=== PATIENT | male | born 1965 | race African-American/Black ===

== ENCOUNTER 2016-06-01 09:29 | Inpatient (IN) | payer SELFPAY ==
[~2016-06-01] VITALS: Ht 188 cm; Wt 90.8 kg
[~2016-06-01 09:29] MED LIST: CHLO.12%30 SSP; IBUP800T23 PO; PENVK500 PO
[2016-06-01 09:34] VITALS: BP 135/85; PULSE 86; RESP 14; TEMP 97.9; O2SAT 98
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
[2016-06-01] MEDS ORDERED: IBUPROFEN 800 MG TAB PO ONE (10:15)
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
[2016-06-01] MEDS ORDERED: SODIUM CHLORIDE 0.9% FLUSH 5 ML FLUSH IVF PRN (11:45)
[2016-06-01] MEDS ORDERED: ONDANSETRON HCL 4 MG/2 ML VIAL IVP PRN (12:00)
[2016-06-01] MEDS ORDERED: BISACODYL 10 MG SUPP PR PRN (12:00)
[2016-06-01] MEDS ORDERED: ACETAMINOPHEN/HYDROcodone 325 MG/5 MG TAB PO PRN (12:00)
[2016-06-01] MEDS ORDERED: SODIUM CHLORIDE 0.9% FLUSH 5 ML FLUSH FLUSH PRN (12:00)
[2016-06-01] MEDS ORDERED: ACETAMINOPHEN/HYDROcodone 325 MG/7.5 MG TAB PO PRN (12:00)
[2016-06-01] MEDS ORDERED: MORPHINE SULFATE 4 MG/ML INJ IV PRN (12:00)
[2016-06-01] MEDS ORDERED: NALOXONE HCL 0.4 MG/ML AMP IV PRN (12:00)
[2016-06-01] MEDS ORDERED: ACETAMINOPHEN 325 MG TAB PO PRN (12:00)
[2016-06-01] MEDS ORDERED: MAGNESIUM HYDROXIDE SUSP 30 ML CUP PO PRN (12:00)
[2016-06-01] MEDS: DOCUSATE SODIUM 100 MG CAP PO SCH ×3 (12:00→19:45)
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
[2016-06-01 12:20] VITALS: BP 138/82; PULSE 77; RESP 16; O2SAT 98
[2016-06-01 12:32] LABS: AUTOMATED NEUTROPHIL # 5.6 TH/MM3 (1.8-7.7); BASOPHIL # 0.1 TH/MM3 (0-0.2); BASOPHIL % 0.8 % (0.0-2.0); EOSINOPHIL # 0.1 TH/MM3 (0-0.4); EOSINOPHIL % 1.2 % (0.0-4.0); HEMATOCRIT 40.8 % (39.0-51.0); HEMO FLAGS DIFF FINAL; LYMPH % 20.9 % (9.0-44.0); LYMPHOCYTE # 1.7 TH/MM3 (1.0-4.8); MEAN CELL VOLUME 83.4 FL (80.0-100.0); MEAN CORPUSCULAR HEMOGLOBIN 27.5 PG (27.0-34.0); MONO % 8.2 % (0.0-8.0); NEUT % 68.9 % (16.0-70.0); PLATELET COUNT 312 TH/MM3 (150-450); RED BLOOD COUNT 4.89 MIL/MM3 (4.50-5.90); RED CELL DISTRIBUTION WIDTH 13.8 % (11.6-17.2); WHITE BLOOD COUNT 8.1 TH/MM3 (4.0-11.0)
--- NOTE | 2016-06-01 12:40 | RADRPT ---
EXAM DATE/TIME: 06/01/2016 11:43 [facility] COMPARISON: No previous studies available for comparison. INDICATIONS : Evaluate for pneumothorax, pneumothorax or cummuninable disease MEDICAL HISTORY : None. SURGICAL HISTORY : None. ENCOUNTER: Initial ACUITY: 1 day PAIN SCORE: 0/10 LOCATION: Bilateral chest FINDINGS: Single AP view of the chest. The lungs are clear. Cardiomediastinal silhouette within normal limits. No evidence of pleural effusion or pneumothorax. CONCLUSION: No acute cardiopulmonary disease identified. Aureliano Kim MD on June 01, 2016 at 12:38 Board Certified Radiologist. This report was verified electronically.
[2016-06-01 12:41] LABS: APTT (PATIENT) 28.2 SEC (24.3-30.1); PROTHROMBIN TIME - PATIENT 10.6 SEC (9.8-11.6)
[2016-06-01 12:46] LABS: BICARBONATE 28.7 MEQ/L (21.0-32.0); POTASSIUM 4.2 MEQ/L (3.5-5.1)
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
[2016-06-01] MEDS ORDERED: LORazepam 1 MG TAB PO PRN (14:00)
[2016-06-01] MEDS ORDERED: FLUMAZENIL 0.5 MG/5 ML VIAL IV PUSH PRN (14:00)
[2016-06-01] MEDS ORDERED: LORazepam 2 MG/ML VIAL IV PUSH PRN ×4 (14:00)
[2016-06-01] MEDS ORDERED: LORazepam 2 MG TAB PO PRN (14:00)
[2016-06-01] MEDS ORDERED: HALOPERIDOL LACTATE 5 MG/ML AMP IM PRN (14:00)
[2016-06-01 15:01] VITALS: BP 168/95; PULSE 83; RESP 17; TEMP 98.1; O2SAT 97
[2016-06-01] MEDS: SODIUM CHLORIDE 0.9% FLUSH 5 ML FLUSH FLUSH SCH (19:45)
[2016-06-01 20:21] VITALS: BP 163/92; PULSE 76; RESP 17; TEMP 97.6; O2SAT 99
[2016-06-02 00:44] VITALS: BP 163/92; PULSE 76; RESP 17; TEMP 97.6; O2SAT 99
[2016-06-02 00:47] VITALS: BP 156/86; PULSE 79; RESP 20; TEMP 97.2; O2SAT 100
[2016-06-02 04:28] VITALS: BP 149/91; PULSE 78; RESP 18; TEMP 97.6; O2SAT 100
[2016-06-02] MEDS ORDERED: METOPROLOL TARTRATE 25 MG TAB PO PRN (05:00)
[2016-06-02] MEDS ORDERED: INSULIN HUMAN REGULAR 1,000 UNITS/10 ML VIAL SQ PRN (05:00)
[2016-06-02] MEDS ORDERED: SODIUM CHLORID 0.9% 500 ML IV SCH (05:00)
[2016-06-02] MEDS ORDERED: LACTATED RINGER'S 1000 ML IV SCH (05:00)
[2016-06-02] MEDS ORDERED: HYDR-3288 PO (06:32)
[2016-06-02] MEDS ORDERED: WALKER/ADULT/FO1 MIS (06:34)
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
[2016-06-02] MEDS ORDERED: VANCOMYCIN HCL 1000 MG VIAL ONE (06:59)
[2016-06-02] MEDS ORDERED: SODIUM CHLOR 0.9% 250 ML INJ 250 ML ONE (07:00)
[2016-06-02] MEDS ORDERED: GENTAMICIN SULFATE 80 MG/2 ML VIAL ONE (07:00)
[2016-06-02] MEDS ORDERED: ceFAZolin 2 GM PREMIX 50 ML ONE (07:00)
[2016-06-02] MEDS ORDERED: FAMOTIDINE 20 MG/2 ML VIAL ONE (07:10)
[2016-06-02] MEDS ORDERED: ACETAMINOPHEN 1000 MG/100 ML VIAL IV ONE (07:10)
[2016-06-02] MEDS ORDERED: MIDAZOLAM HCL 2 MG/2 ML VIAL ONE (07:11)
--- NOTE | 2016-06-02 07:25 | PD.OP ---
cc: Tucker Duran MD Operative Report Date of Surgery: Jun 02, 2016 Preoperative Diagnosis: Displaced right ankle fracture Postoperative Diagnosis: Procedure: Open reduction internal fixation right ankle Anesthesia: Gen. Surgeon: Tucker Duran Performance Engineer(s): KYLEIGH Leach PA-C The surgical procedure was assisted by my physician news production assistant. My P.A. presence was necessary throughout this case for the manipulation and positioning of the surgical extremity. My P.A. was assisting me throughout the duration of this procedure. The skill set of a physician news production assistant was medically necessary to complete this procedure. During the surgical case the surgical supply assistant was working at the back table and the physician news production assistant was directly assisting me. Operation and Findings: This patient sustained an ankle injury with displaced right fibular fracture. Informed consent was obtained preoperatively after detailed discussion of risk and benefits of surgery. Operative site was marked. Patient was brought to operating room and placed on operating room table. IV sedation and GETA were administered by anesthesiologist. IV antibiotics were given prior to incision. Operative leg was prepped with alcohol followed by Hibiclens and draped in usual sterile fashion. Timeout procedure was performed. Procedure began with a 4 inch incision over the distal fibula. Subcutaneous tissues dissected with Bovie. Fracture site was visualized. Fracture was now carefully reduced. Fracture keyed into excellent alignment. Fracture tenaculums were used to hold reduction. Multiplanar fluoroscopy revealed excellent alignment of fracture. A Synthes plate was selected. Plate was provisionally held the bone with K wires. Fluoroscopy confirmed plate placement. 3.5 cortical screws were used to compress plate to bone. Multiple screws were placed on each side of the fracture. Fluoroscopy confirmed excellent of fracture with well-placed hardware. Next attention was turned towards the syndesmosis. The syndesmosis was gently stressed. The ankle was externally rotated. There was no widening of the medial clear space and syndesmosis. Next the wound was thoroughly irrigated with sterile saline. Subcutaneous tissues closed with 3-0 Vicryl. Skin was closed with 3-0 nylon. Sterile dressings were applied. Patient was placed into a well molded well-padded splint. Patient was awakened and transferred to recovery room in stable condition. Needle and sponge counts were correct. Tucker Duran MD Jun 02, 2016 07:25
[2016-06-02] MEDS ORDERED: ACETAMINOPHEN/HYDROcodone 325 MG/7.5 MG TAB PO PRN (07:30)
[2016-06-02] MEDS ORDERED: MORPHINE SULFATE 4 MG/ML INJ IV PUSH PRN (07:30)
[2016-06-02] MEDS ORDERED: Post-op Orders (for Pharmacy) MISC XX ONE (08:23)
[2016-06-02] MEDS ORDERED: DO NOT ADM ANY ANTICOAGULANT DRUGS XX PRN (08:25)
--- NOTE | 2016-06-02 08:30 | RADRPT ---
EXAM DATE/TIME: 06/02/2016 07:58 [facility] COMPARISON: No previous studies available for comparison. INDICATIONS : Post-op ORIF right distal fubula fracture. MEDICAL HISTORY : None. SURGICAL HISTORY : None. ENCOUNTER: Subsequent ACUITY: 2 days PAIN SCORE: Non-responsive. LOCATION: Right ankle. FINDINGS: There is been plate and screw fixation of the distal fibula. Hardware is intact. Alignment is anatomi c. Mortise is congruent. Visualized portions of the hindfoot are grossly intact CONCLUSION: Satisfactory operative appearance Everardo Mcallister MD on June 02, 2016 at 8:28 Board Certified Radiologist. This report was verified electronically.
[2016-06-02] MEDS ORDERED: *RESP: ALBUTEROL 2.5 MG/3 ML NEB (PRN) PERIprocedural Use ONLY NEB ONE (08:34)
[2016-06-02] MEDS ORDERED: fentaNYL CITRATE 250 MCG/5 ML AMP ONE (08:34)
[2016-06-02] MEDS ORDERED: MULTIVITAMINS/MINERALS THERAPEUTIC TAB PO SCH (09:00)
[2016-06-02] MEDS: DOCUSATE SODIUM 100 MG CAP PO SCH (09:00)
[2016-06-02] MEDS: CALCIUM/VITAMIN D 250 MG/125 U TAB PO SCH ×2 (09:00→15:13)
[2016-06-02] MEDS ORDERED: THIAMINE HCL 100 MG TAB PO SCH (09:00)
[2016-06-02] MEDS ORDERED: FOLIC ACID 1 MG TAB PO SCH (09:00)
[2016-06-02] MEDS: SODIUM CHLORIDE 0.9% FLUSH 5 ML FLUSH FLUSH SCH (09:00)
[2016-06-02] MEDS ORDERED: *LABETALOL HCL 100 MG/20 ML VIAL PERIprocedural Use ONLY ONE (09:51)
[2016-06-02] MEDS: ACETAMINOPHEN/HYDROcodone 325 MG/7.5 MG TAB PO PRN ×2 (10:47→16:51)
[2016-06-02 10:55] VITALS: BP 138/93; PULSE 73; RESP 16; TEMP 97.4; O2SAT 99
[2016-06-02] MEDS ORDERED: PROPOFOL 200 MG/20 ML AMP IV ONE (12:00)
[2016-06-02] MEDS ORDERED: NEOSTIGMINE 3 MG/3 ML SYR IV ONE (12:00)
[2016-06-02] MEDS ORDERED: ONDANSETRON HCL 4 MG/2 ML VIAL IV PUSH ONE (12:00)
[2016-06-02] MEDS ORDERED: PHENYLEPH/NS 1000 MCG/10 ML SYR IV ONE (12:00)
[2016-06-02] MEDS ORDERED: FOLI1TAB4 PO (13:19)
[2016-06-02] MEDS ORDERED: VITA100T2 PO (13:19)
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
[2016-06-02] MEDS ORDERED: ceFAZolin 2 GM PREMIX 50 ML IV SCH (15:00)
[2016-06-02 16:00] VITALS: BP 142/87; PULSE 79; RESP 18; TEMP 96.9; O2SAT 99
== END 2016-06-02 17:27 | disposition home or self-care (01) | DRG 494 ==
LOC: NEPB 09:29 → NEDA 12:00 → N06B 14:36
PROVIDERS: ADMIT Hospitalist; ATTEND Hospitalist
PROC: 0QSJ04Z Reposition Right Fibula with Internal Fixation Device, Open Approach (ICD-10-PCS; principal; 2016-06-02 07:16)
DX: S82.831A Other fracture of upper and lower end of right fibula, initial encounter for closed fracture (principal); F17.210 Nicotine dependence, cigarettes, uncomplicated; F14.90 Cocaine use, unspecified, uncomplicated; Z72.89 Other problems related to lifestyle; W03.XXXA Other fall on same level due to collision with another person, initial encounter; Y93.89 Activity, other specified
CPT/HCPCS: 71010; 73600; 73610; 73630; 76000; 80048; 85025; 85610; 85730; 94150; 94664; 99284; C1713; E0113; J0131; J0690; J1580; J2250; J2370; J2405; J2710; J3010; J3370; J7050; J7120; J7613

== ENCOUNTER 2017-02-01 21:17 | Inpatient (IN) | payer SELFPAY ==
[~2017-02-01] VITALS: Ht 188 cm; Wt 89.2 kg
[~2017-02-01 21:17] MED LIST changes: -CHLO.12%30 SSP; +FOLI1TAB4 PO; +HYDR-3288 PO; -IBUP800T23 PO; -PENVK500 PO; +VITA100T2 PO; +WALKER/ADULT/FO1 MIS
[2017-02-01 21:26] VITALS: BP 169/98; PULSE 80; RESP 17; TEMP 97.2; O2SAT 98
[2017-02-01] MEDS ORDERED: oxyCODONE/ACETAMINOPHEN 5 MG/325 MG TAB PO ONE (21:30)
--- NOTE | 2017-02-01 21:58 | RADRPT ---
EXAM DATE/TIME: 02/01/2017 21:39 [facility] COMPARISON: No previous studies available for comparison. INDICATIONS : Knee pain after falling on knee on 01/31, swelling to anterior knee. MEDICAL HISTORY : None. SURGICAL HISTORY : None. ENCOUNTER: Initial ACUITY: 1 day PAIN SCORE: 0/10 LOCATION: Right knee FINDINGS: There is an avulsion fracture of the inferior pole of the patella with superior migration of the peterson lla. There is prepatellar soft tissue swelling. Minimal medial subluxation of the distal femur. Hyper trophic bony changes noted at the medial collateral ligament insertion superiorly. CONCLUSION: 1. Avulsion fracture inferior patella with superior migration of the patella and extensive prepatella r soft tissue swelling. Rudy Lewis MD on February 01, 2017 at 21:54 Board Certified Radiologist. This report was verified electronically.
--- NOTE | 2017-02-01 22:14 | PD ---
HPI Chief Complaint: Fall Time Seen by Provider: 21:26 Travel History International Travel<30 days: No Contact w/Intl Traveler<30days: No Traveled to known affect area: No History of Present Illness HPI Patient is a 52-year-old male presenting to emergency evaluation of right knee pain. Patient states he tripped and fell onto his right knee Yesterday while leaving the liquor store. Patient states that he has been unable to ambulate on it, he's been using a walker that he had a his house. He reports his pain as a 9 out of 10, he reports decreased range of motion. He states when he fell his kneecap was out of place. Patient states it is aching and throbbing. Pain is alleviated somewhat with rest, worsened with activity. He denies any numbness or weakness in his extremity. [facility] Past Medical History Medical History: Denies Significant Hx Arthritis: No Asthma: No Autoimmune Disease: No Blood Disorders: No Heart Rhythm Problems: No Cardiovascular Problems: No High Cholesterol: No Chest Pain: No Congestive Heart Failure: No COPD: No Cerebrovascular Accident: No Diabetes: No Diminished Hearing: No GERD: No Glaucoma: No Headaches: No Hepatitis: No Hiatal Hernia: No Immune Disorder: No Kidney Stones: No Musculoskeletal: No Neurologic: No Myocardial Infarction: No Renal Failure: No Seizures: No Sickle Cell Disease: No Sleep Apnea: No Thyroid Disease: No Ulcer: No Tetanus Vaccination: Unknown Influenza Vaccination: No Past Surgical History Abdominal Surgery: No Cardiac Surgery: No Ear Surgery: No Endocrine Surgery: No Eye Surgery: Yes (LEFT EYE X 3 YRS AGO) Genitourinary Surgery: No Gynecologic Surgery: No Oral Surgery: No Thoracic Surgery: No Other Surgery: Yes (wrist.surgury) Social History Alcohol Use: Yes (4 PPD) Tobacco Use: Yes (1/4 PPD) Substance Use: No (PT DENIES) Allergies-Medications (Allergen,Severity, Reaction): Coded Allergies: No Known Allergies (Verified , 02/01/17) Reported Meds & Prescriptions Reported Meds & Active Scripts Active Walker/Adult/Folding (Device) 1 Mis Mis 1 Ea .ROUTE DIRECTED Review of Systems Except as stated in HPI: all other systems reviewed are Neg Musculoskeletal: Positive: Myalgias, Arthralgias, Limited ROM, Edema, Pain Physical Exam Narrative GENERAL: Well-developed, well-nourished, alert male. Resting comfortably in no acute distress. SKIN: Warm and dry. HEAD: Atraumatic. Normocephalic. EYES: Pupils equal and round. No scleral icterus. No injection or drainage. ENT: No nasal bleeding or discharge. Mucous membranes pink and moist. NECK: Trachea midline. No JVD. CARDIOVASCULAR: Regular rate and rhythm. RESPIRATORY: No accessory muscle use. Clear to auscultation. Breath sounds equal bilaterally. GASTROINTESTINAL: Abdomen soft, non-tender, nondistended. Hepatic and splenic margins not palpable. MUSCULOSKELETAL: Extremities without clubbing, cyanosis. Moderate to the right anterior knee, decreased range of motion with flexion, patient can only flex to about 30, extension is painful. 2+ dorsalis pedal pulses, brisk less than 3 second capillary refill. NEUROLOGICAL: Awake and alert. No obvious cranial nerve deficits. Motor grossly within normal limits. Five out of 5 muscle strength in the arms and legs. Normal speech. PSYCHIATRIC: Appropriate mood and affect; insight and judgment normal. Data Data Last Documented VS Vital Signs Date Time Temp Pulse Resp B/P (MAP) Pulse Ox O2 Delivery O2 Flow Rate FiO2 02/01/17 22:46 74 20 156/93 (114) 99 Room Air 02/01/17 21:26 97.2 Orders Orders Knee, Complete (4vws) (02/01/17 ) Oxycodone-Acetamin 5-325 Mg (Percocet (02/01/17 21:30) Ice/Cold Pack (02/01/17 21:26) Complete Blood Count With Diff (02/01/17 22:09) Basic Metabolic Panel (Bmp) (02/01/17 22:09) Act Partial Throm Time (Ptt) (02/01/17 22:09) Prothrombin Time / Inr (Pt) (02/01/17 22:09) Iv Access Insert/Monitor (02/01/17 22:09) Consult Orthopedic (02/01/17 ) ^ Knee Immobilizer (02/01/17 23:02) Admit Order (Ed Use Only) (02/01/17 23:02) Labs Laboratory Tests Test 02/01/17 22:20 White Blood Count 7.1 TH/MM3 Red Blood Count 5.00 MIL/MM3 Hemoglobin 14.1 GM/DL Hematocrit 42.2 % Mean Corpuscular Volume 84.3 FL Mean Corpuscular Hemoglobin 28.3 PG Mean Corpuscular Hemoglobin Concent 33.5 % Red Cell Distribution Width 14.4 % Platelet Count 338 TH/MM3 Mean Platelet Volume 7.0 FL Neutrophils (%) (Auto) 71.6 % Lymphocytes (%) (Auto) 14.2 % Monocytes (%) (Auto) 8.7 % Eosinophils (%) (Auto) 4.3 % Basophils (%) (Auto) 1.2 % Neutrophils # (Auto) 5.1 TH/MM3 Lymphocytes # (Auto) 1.0 TH/MM3 Monocytes # (Auto) 0.6 TH/MM3 Eosinophils # (Auto) 0.3 TH/MM3 Basophils # (Auto) 0.1 TH/MM3 CBC Comment AUTO DIFF Prothrombin Time 10.4 SEC Prothromb Time International Ratio 0.9 RATIO Activated Partial Thromboplast Time 28.1 SEC Blood Urea Nitrogen 23 MG/DL Creatinine 1.31 MG/DL Random Glucose 151 MG/DL Calcium Level 8.8 MG/DL Sodium Level 140 MEQ/L Potassium Level 3.9 MEQ/L Chloride Level 102 MEQ/L Carbon Dioxide Level 25.7 MEQ/L Anion Gap 12 MEQ/L Estimat Glomerular Filtration Rate 70 ML/MIN MDM Medical Decision Making Medical Screen Exam Complete: Yes Emergency Medical Condition: Yes Interpretation(s) Laboratory Tests Test 02/01/17 22:20 White Blood Count 7.1 TH/MM3 Red Blood Count 5.00 MIL/MM3 Hemoglobin 14.1 GM/DL Hematocrit 42.2 % Mean Corpuscular Volume 84.3 FL Mean Corpuscular Hemoglobin 28.3 PG Mean Corpuscular Hemoglobin Concent 33.5 % Red Cell Distribution Width 14.4 % Platelet Count 338 TH/MM3 Mean Platelet Volume 7.0 FL Neutrophils (%) (Auto) 71.6 % Lymphocytes (%) (Auto) 14.2 % Monocytes (%) (Auto) 8.7 % Eosinophils (%) (Auto) 4.3 % Basophils (%) (Auto) 1.2 % Neutrophils # (Auto) 5.1 TH/MM3 Lymphocytes # (Auto) 1.0 TH/MM3 Monocytes # (Auto) 0.6 TH/MM3 Eosinophils # (Auto) 0.3 TH/MM3 Basophils # (Auto) 0.1 TH/MM3 CBC Comment AUTO DIFF Prothrombin Time 10.4 SEC Prothromb Time International Ratio 0.9 RATIO Activated Partial Thromboplast Time 28.1 SEC Blood Urea Nitrogen 23 MG/DL Creatinine 1.31 MG/DL Random Glucose 151 MG/DL Calcium Level 8.8 MG/DL Sodium Level 140 MEQ/L Potassium Level 3.9 MEQ/L Chloride Level 102 MEQ/L Carbon Dioxide Level 25.7 MEQ/L Anion Gap 12 MEQ/L Estimat Glomerular Filtration Rate 70 ML/MIN Last Impressions Knee X-Ray 02/01/17 0000 Signed Impressions: Service Date/Time: Wednesday, February 01, 2017 21:39 - CONCLUSION: 1. Avulsion fracture inferior patella with superior migration of the patella and extensive prepatellar soft tissue swelling. Rudy Lewis MD Vital Signs Date Time Temp Pulse Resp B/P (MAP) Pulse Ox O2 Delivery O2 Flow Rate FiO2 02/01/17 21:26 97.2 80 17 169/98 (121) 98 Differential Diagnosis Sprain versus strain versus effusion versus fracture versus dislocation versus other Narrative Course Patient presented with 1 day of right knee pain after trip and fall. He is neurovascularly intact, imaging and medications ordered. Right knee x-ray which is read by the radiologist shows an Avulsion fracture inferior patella with superior migration of the patella and extensive prepatellar soft tissue swelling. On-call orthopedic surgeon paged. Basic labs, IV antibiotics ordered. Patient was reassessed, he reports improvement in his pain after demonstration of Percocet, he last ate approximately 1 hour prior to arrival. Discussed with Dr. Sargent Orthopedic surgeon. She will see patient in the morning. Patient will be admitted to medicine. Labs reviewed, no acute abnormalities identified. Discussed with Dr. Lu, who accepted admitted. Admit orders place. Patient aware and agreeable to plan. Knee immobilizer ordered. Diagnosis Primary Impression: Patella fracture Qualified Codes: S82.091A - Other fracture of right patella, initial encounter for closed fracture Admitting Information Admitting Physician Requests: Admit Condition: Stable Randi Peña Feb 01, 2017 22:14
[2017-02-01 22:38] LABS: AUTOMATED NEUTROPHIL # 5.1 TH/MM3 (1.8-7.7); BASOPHIL # 0.1 TH/MM3 (0-0.2); BASOPHIL % 1.2 % (0.0-2.0); EOSINOPHIL # 0.3 TH/MM3 (0-0.4); EOSINOPHIL % 4.3 % (0.0-4.0); HEMATOCRIT 42.2 % (39.0-51.0); LYMPH % 14.2 % (9.0-44.0); MEAN CELL VOLUME 84.3 FL (80.0-100.0); MEAN CORPUSCULAR HEMOGLOBIN 28.3 PG (27.0-34.0); MEAN CORPUSCULAR HGB CONC 33.5 % (32.0-36.0); MONO % 8.7 % (0.0-8.0); NEUT % 71.6 % (16.0-70.0); PLATELET COUNT 338 TH/MM3 (150-450); RED CELL DISTRIBUTION WIDTH 14.4 % (11.6-17.2); WHITE BLOOD COUNT 7.1 TH/MM3 (4.0-11.0)
[2017-02-01 22:43] LABS: HEMO FLAGS AUTO DIFF
[2017-02-01 22:46] VITALS: BP 156/93; PULSE 74; RESP 20; O2SAT 99
[2017-02-01 22:48] LABS: APTT (PATIENT) 28.1 SEC (24.3-30.1); INTERNATIONAL NORMALIZED RATIO 0.9 RATIO; PROTHROMBIN TIME - PATIENT 10.4 SEC (9.8-11.6)
[2017-02-01 22:58] LABS: BICARBONATE 25.7 MEQ/L (21.0-32.0); POTASSIUM 3.9 MEQ/L (3.5-5.1)
[2017-02-01 23:07] LABS: BANDS 7 % (0-6); BASOPHILS 2 % (0-2); EOSINOPHILS 4 % (0-4); NEUTROPHIL # MANUAL DIFF 5.1 TH/MM3 (1.8-7.7); POLYS (SEG NEUTROPHILS) 65 % (16-70); SCAN/DIFF FINAL DIFF MANUAL; WBC DIFF SAMPLE 100
[2017-02-01 23:08] LABS: PLATELET ESTIMATE SMEAR NORMAL (NORMAL); PLATELET MORPHOLOGY NORMAL (NORMAL)
[2017-02-01] MEDS: SODIUM CHLOR 0.9% 1000 ML INJ 1,000 ML IV SCH (23:10)
--- NOTE | 2017-02-01 23:12 | HHI.HP ---
[facility] No Primary Care Physician Admission Diagnosis patella fracture Diagnoses: (1) Fall Diagnosis: Principal (2) Patella fracture Diagnosis: Principal (3) Renal insufficiency Diagnosis: Principal (4) HTN (hypertension) Diagnosis: Principal Travel History International Travel<30 Days: No Contact w/Intl Traveler <30 Da: No Traveled to Known Affected Are: No History of Present Illness This is a 52-year-old male with PMH of Alcohol Abuse and Tobacco Abuse who presented to the ER with complaints of right knee pain after mechanical trip and fall. States tripped and fell yesterday while leaving liquor store, unable to ambulate since then secondary to pain. No LOC or head trauma w/ fall. On arrival, BP 169/98, HR 80, O2 sat 98% on RA, Afebrile. CBC essentially unremarkable. Chemistry unremarkable except for creatinine 1.31, previously 1.09 on 06/01/16. INR 0.9. Knee X-ray with avulsion fracture inferior patella. Dr. Sargent consulted by ER physician, plan is for surgical intervention in am. Review of Systems Except as stated in HPI: all other systems reviewed are Neg ROS: 14 point review of systems otherwise negative. Past Family Social History Past Medical History PMH: Alcohol Abuse, Tobacco Abuse Past Surgical History PAST SURGICAL HISTORY: Wrist Surgery, Eye Surgery Allergies: Coded Allergies: No Known Allergies (Verified , 02/01/17) Family History PAST FAMILY HISTORY: Reviewed. No h/o DM or CAD Social History PAST SOCIAL HISTORY: Drinks daily. Smokes 1/4ppd. H/o Cocaine abuse, denies recent ingestion. Physical Exam Vital Signs Vital Signs Date Time Temp Pulse Resp B/P (MAP) Pulse Ox O2 Delivery O2 Flow Rate FiO2 02/01/17 22:46 74 20 156/93 (114) 99 Room Air 02/01/17 21:26 97.2 80 17 169/98 (121) 98 Physical Exam PE: GENERAL: Middle-aged male in no acute distress. HEENT: PERRLA, EOMI. No scleral icterus or conjunctival pallor. No lid lag or facial droop. CARDIOVASCULAR: Regular rate and rhythm. No obvious murmurs to auscultation. No chest tenderness to palpation. RESPIRATORY: No obvious rhonchi or wheezing. Clear to auscultation. Breath sounds equal bilaterally. GASTROINTESTINAL: Abdomen soft, non-tender, nondistended. BS normal. MUSCULOSKELETAL: Extremities without clubbing, cyanosis, or edema. No obvious deformities. Decreased ROM of RLE due to injury. NEUROLOGICAL: Awake, alert and oriented x4. No focal neurologic deficits. Moving both upper and lower extremities spontaneously. Laboratory Laboratory Tests Test 02/01/17 22:20 White Blood Count 7.1 Red Blood Count 5.00 Hemoglobin 14.1 Hematocrit 42.2 Mean Corpuscular Volume 84.3 Mean Corpuscular Hemoglobin 28.3 Mean Corpuscular Hemoglobin Concent 33.5 Red Cell Distribution Width 14.4 Platelet Count 338 Mean Platelet Volume 7.0 Neutrophils (%) (Auto) 71.6 Lymphocytes (%) (Auto) 14.2 Monocytes (%) (Auto) 8.7 Eosinophils (%) (Auto) 4.3 Basophils (%) (Auto) 1.2 Neutrophils # (Auto) 5.1 Lymphocytes # (Auto) 1.0 Monocytes # (Auto) 0.6 Eosinophils # (Auto) 0.3 Basophils # (Auto) 0.1 CBC Comment AUTO DIFF Differential Total Cells Counted 100 Neutrophils % (Manual) 65 Band Neutrophils % 7 Lymphocytes % 19 Monocytes % 3 Eosinophils % 4 Basophils % 2 Neutrophils # (Manual) 5.1 Differential Comment FINAL DIFF MANUAL Atypical Lymphocytes Platelet Estimate NORMAL Platelet Morphology Comment NORMAL Red Cell Morphology Comment NORMAL Prothrombin Time 10.4 Prothromb Time International Ratio 0.9 Activated Partial Thromboplast Time 28.1 Blood Urea Nitrogen 23 Creatinine 1.31 Random Glucose 151 Calcium Level 8.8 Sodium Level 140 Potassium Level 3.9 Chloride Level 102 Carbon Dioxide Level 25.7 Anion Gap 12 Estimat Glomerular Filtration Rate 70 Result Diagram: 02/01/17221902/01/172219 Caprini VTE Risk Assessment Caprini VTE Risk Assessment: Mod/High Risk (score >= 2) Caprini Risk Assessment Model Point Value = 1 Point Value = 2 Point Value = 3 Point Value = 5 Age 41-60 Minor surgery BMI > 25 kg/m2 Swollen legs Varicose veins or History of unexplained or recurrent spontaneous Oral contraceptives or hormone replacement Sepsis (< 1 month) Serious lung disease, including pneumonia (< 1 month) Abnormal pulmonary function Acute myocardial infarction Congestive heart failure (< 1 month) History of inflammatory bowel disease Medical patient at bed rest Age 61-74 Arthroscopic surgery Major open surgery (> 45 min) Laparoscopic surgery (> 45 min) Malignancy Confined to bed (> 72 hours) Immobilizing plaster cast Central venous access Age >= 75 History of VTE Family history of VTE Factor V Leiden Prothrombin 18284H Lupus anticoagulant Anticardiolipin antibodies Elevated serum homocysteine Heparin-induced thrombocytopenia Other congenital or acquired thrombophilia Stroke (< 1 month) Elective arthroplasty Hip, pelvis, or leg fracture Acute spinal cord injury (< 1 month) Prophylaxis Regimen Total Risk Factor Score Risk Level Prophylaxis Regimen 0-1 Low Early ambulation 2 Moderate Order ONE of the following: *Sequential Compression Device (SCD) *Heparin 5000 units SQ BID 3-4 Higher Order ONE of the following medications: *Heparin 5000 units SQ TID *Enoxaparin/Lovenox 40 mg SQ daily (WT < 150 kg, CrCl > 30 mL/min) *Enoxaparin/Lovenox 30 mg SQ daily (WT < 150 kg, CrCl > 10-29 mL/min) *Enoxaparin/Lovenox 30 mg SQ BID (WT < 150 kg, CrCl > 30 mL/min) AND/OR *Sequential Compression Device (SCD) 5 or more Highest Order ONE of the following medications: *Heparin 5000 units SQ TID (Preferred with Epidurals) *Enoxaparin/Lovenox 40 mg SQ daily (WT < 150 kg, CrCl > 30 mL/min) *Enoxaparin/Lovenox 30 mg SQ daily (WT < 150 kg, CrCl > 10-29 mL/min) *Enoxaparin/Lovenox 30 mg SQ BID (WT < 150 kg, CrCl > 30 mL/min) AND *Sequential Compression Device (SCD) Assessment and Plan Problem List: (1) Fall ICD Code: W19.XXXA - Unspecified fall, initial encounter (2) Patella fracture ICD Code: S82.009A - Unspecified fracture of unspecified patella, initial encounter for closed fracture Status: Acute (3) Renal insufficiency ICD Code: N28.9 - Disorder of kidney and ureter, unspecified (4) HTN (hypertension) ICD Code: I10 - Essential (primary) hypertension Assessment and Plan A/P: 1. Fall: S/p mechanical trip and fall while walking out of liquor store, no LOC or head trauma, no other injuries reported. 2. Right Patellar Fx: secondary to above, Knee X-ray w/ avulsion fracture inferior patella with superior migration of patella and extensive prepatellar soft tissue swelling, images reviewed by me. Dr. Sargent consulted by ER physician, plan is for surgical intervention in am. NPO, IVF, analgesics/ antiemetics as needed. 3. DANIELA: Creatinine 1.31, previously 1.09 on 06/01/16. IVF for hydration, repeat labs in a.m. 4. HTN: BP 160s on arrival, likely compounded by pain complaints. Monitor BP. 5. Alcohol Abuse: Drinks daily. CIWA, Seizure Precautions, MVT/Thiamine/ Folate replacement. 6. Tobacco Abuse: NicoDerm prn if needed. 7. DVT Prophylaxis: Anticoagulation post op 8. Social work for d/c planning as needed. 9. Case discussed w/ ER physician at length. Physician Certification 2 Midnight Certification Type: Admission for Inpatient Services Order for Inpatient Services The services are ordered in accordance with Medicare regulations or non- Medicare payer requirements, as applicable. In the case of services not specified as inpatient-only, they are appropriately provided as inpatient services in accordance with the 2-midnight benchmark. Estimated LOS (days): 2 days is the estimated time the patient will need to remain in the hospital, assuming treatment plan goals are met and no additional complications. Post-Hospital Plan: Not yet determined Problem Qualifiers (1) Patella fracture: Qualified Codes: S82.091A - Other fracture of right patella, initial encounter for closed fracture Lexii Lu MD Feb 01, 2017 23:12
[2017-02-01] MEDS ORDERED: SODIUM CHLORIDE 0.9% FLUSH 10 ML FLUSH IV FLUSH PRN (23:15)
[2017-02-01] MEDS ORDERED: MAGNESIUM HYDROXIDE SUSP 30 ML CUP PO PRN (23:15)
[2017-02-01] MEDS ORDERED: BISACODYL 10 MG SUPP RECTAL PRN (23:15)
[2017-02-01] MEDS ORDERED: SENNOSIDES 8.6 MG TAB PO PRN (23:15)
[2017-02-01] MEDS ORDERED: ONDANSETRON HCL 4 MG/2 ML VIAL IVP PRN (23:15)
[2017-02-01] MEDS ORDERED: MORPHINE SULFATE 4 MG/ML INJ IV PUSH PRN (23:15)
[2017-02-01] MEDS ORDERED: ACETAMINOPHEN 325 MG TAB PO PRN (23:15)
[2017-02-01] MEDS ORDERED: LACTULOSE SYRUP 20 GM/30 ML CUP PO PRN (23:15)
[2017-02-01] MEDS ORDERED: MORPHINE SULFATE 2 MG/ML INJ IV PRN (23:30)
[2017-02-01 23:45] VITALS: BP 152/88; PULSE 76; RESP 17; TEMP 97.5; O2SAT 98
[2017-02-02] MEDS ORDERED: LACTATED RINGER'S 1000 ML IV PRN (00:15)
[2017-02-02] MEDS ORDERED: POVIDONE IODINE 5% (ANTISEPSIS KIT) 4 APPLICATIONS EACH NARE PRN (00:15)
[2017-02-02] MEDS ORDERED: INSULIN HUMAN REGULAR 1,000 UNITS/10 ML VIAL SQ PRN (00:15)
[2017-02-02] MEDS ORDERED: CHLORHEXIDINE GLUCONATE 2 % 1 PACK (2 CLOTHS) TOPICAL PRN (00:15)
[2017-02-02] MEDS ORDERED: SODIUM CHLORID 0.9% 500 ML IV PRN (00:15)
[2017-02-02] MEDS ORDERED: LORazepam 2 MG/ML VIAL IV PUSH PRN ×4 (01:15)
[2017-02-02] MEDS ORDERED: HALOPERIDOL LACTATE 5 MG/ML AMP IM PRN (01:15)
[2017-02-02] MEDS ORDERED: LORazepam 2 MG TAB PO PRN (01:15)
[2017-02-02] MEDS ORDERED: LORazepam 1 MG TAB PO PRN (01:15)
[2017-02-02] MEDS ORDERED: FLUMAZENIL 0.5 MG/5 ML VIAL IV PUSH PRN (01:15)
[2017-02-02 03:50] VITALS: BP 133/86; PULSE 76; RESP 18; TEMP 96.1; O2SAT 99
--- NOTE | 2017-02-02 07:01 | PD.ORT.PN ---
Subjective Subjective Remarks s/p fall while leaving liquor store right knee pain Objective Vitals Vital Signs Date Time Temp Pulse Resp B/P (MAP) Pulse Ox O2 Delivery O2 Flow Rate FiO2 02/02/17 03:50 96.1 76 18 133/86 (102) 99 02/02/17 03:05 Room Air 02/01/17 23:45 97.5 76 17 152/88 (109) 98 02/01/17 23:29 20 02/01/17 22:46 74 20 156/93 (114) 99 Room Air 02/01/17 21:26 97.2 80 17 169/98 (121) 98 I/O 02/01/17 02/01/17 02/01/17 02/02/17 02/02/17 02/02/17 07:00 15:00 23:00 07:00 15:00 23:00 Intake Total 120 ml Output Total 450 ml Balance -330 ml Intake Oral 120 ml Output Urine Total 450 ml # Voids 0 # Bowel Movements 1 Result Diagram: 02/01/17221902/01/172219 Other Results Laboratory Tests Test 02/01/17 22:20 Prothromb Time International Ratio 0.9 RATIO Prothrombin Time 10.4 SEC (9.8-11.6) Objective Remarks RLE: Pain with motion. +CKS/ pain with palpation. noted swelling. pain with activation of quad muscles Assessment & Plan Assessment and Plan 1) Right Patellar Tendon Avulsion -npo -consents -surgery today Julian Park Feb 02, 2017 07:01
[2017-02-02 07:07] LABS: AUTOMATED NEUTROPHIL # 3.5 TH/MM3 (1.8-7.7); BASOPHIL # 0.1 TH/MM3 (0-0.2); BASOPHIL % 1.1 % (0.0-2.0); EOSINOPHIL # 0.2 TH/MM3 (0-0.4); EOSINOPHIL % 3.7 % (0.0-4.0); HEMATOCRIT 41.5 % (39.0-51.0); HEMO FLAGS DIFF FINAL; LYMPH % 29.1 % (9.0-44.0); LYMPHOCYTE # 1.8 TH/MM3 (1.0-4.8); MEAN CELL VOLUME 85.2 FL (80.0-100.0); MEAN CORPUSCULAR HEMOGLOBIN 28.1 PG (27.0-34.0); MONO % 9.3 % (0.0-8.0); NEUT % 56.8 % (16.0-70.0); PLATELET COUNT 308 TH/MM3 (150-450); RED BLOOD COUNT 4.87 MIL/MM3 (4.50-5.90); RED CELL DISTRIBUTION WIDTH 14.1 % (11.6-17.2); WHITE BLOOD COUNT 6.2 TH/MM3 (4.0-11.0)
[2017-02-02 07:27] LABS: ALT (GPT) 19 U/L (12-78); ANION GAP 8 MEQ/L (5-15); AST (GOT) 15 U/L (15-37); BICARBONATE 24.3 MEQ/L (21.0-32.0); BLOOD UREA NITROGEN 15 MG/DL (7-18); CHLORIDE 106 MEQ/L (98-107); GLOMERULAR FILTRATION RATE 117 ML/MIN (>89); POTASSIUM 4.1 MEQ/L (3.5-5.1); SODIUM (NA) 138 MEQ/L (136-145)
[2017-02-02 07:30] LABS: ALKALINE PHOSPHATASE 64 U/L (45-117); TOTAL BILIRUBIN ADULT 0.2 MG/DL (0.2-1.0)
[2017-02-02 08:03] VITALS: BP 141/94; PULSE 65; RESP 18; TEMP 97.2; O2SAT 98
[2017-02-02] MEDS: MULTIVITAMINS/MINERALS THERAPEUTIC TAB PO SCH (09:00)
[2017-02-02] MEDS: THIAMINE HCL 100 MG TAB PO SCH (09:00)
[2017-02-02] MEDS: FOLIC ACID 1 MG TAB PO SCH (09:00)
[2017-02-02] MEDS ORDERED: SODIUM CHLORIDE 0.9% FLUSH 10 ML FLUSH IV FLUSH SCH (09:00)
[2017-02-02] MEDS: DOCUSATE SODIUM 50 MG/SENNA 8.6 MG TAB PO SCH ×2 (09:00→21:00)
[2017-02-02] MEDS: SODIUM CHLOR 0.9% 1000 ML INJ 1,000 ML IV SCH ×2 (09:10→19:10)
--- NOTE | 2017-02-02 09:18 | MB ---
cc: HANNAH PRADO CAMILLE MD DATE OF CONSULTATION: 02/02/2017 REASON FOR CONSULTATION Right patellar tendon avulsion. CONSULTING PHYSICIAN Dr. Lu. HISTORY OF PRESENT ILLNESS Tommie is a 52-year-old male who presented to the emergency room after having a fall. He states that he tripped and fell while leaving a liquor store. He has been unable to ambulate since his fall. He presented to the emergency room where he was found to have an avulsion of the patellar tendon from the inferior patella. He is currently awake and alert. His only complaint is his right knee. The pain is worse with movement. He denies any dizziness, syncope or loss of consciousness. PAST MEDICAL HISTORY ILLNESSES 1. Tobacco abuse. 2. Alcohol abuse. PAST SURGICAL HISTORY 1. Wrist surgery. 2. Eye surgery. ALLERGIES No known drug allergies. MEDICATIONS Please see EMR for complete list of inpatient medications; this was reviewed. SOCIAL HISTORY The patient drinks alcohol daily. He smokes a quarter pack of cigarettes a day. He denies recent drug use but does have a history of cocaine use. REVIEW OF SYSTEMS The patient denies headache, visual changes, neck pain, chest pain, shortness of breath, abdominal pain, nausea, vomiting recent weight loss or numbness or tingling of extremities. He complains of right knee pain. Pain is worse with movement. PHYSICAL EXAMINATION GENERAL: The patient is a well-developed, well-nourished 52-year-old male in no acute distress. He is awake and alert. He is alert and oriented x3. VITAL SIGNS: Temperature 97.2, pulse 65, respirations 18, blood pressure 141/94. O2 sat is 98% on room air. HEAD: The patient is normocephalic, atraumatic. Pupils are equal. NECK: Soft, nontender. Trachea is midline. ABDOMEN: Soft, nontender, nondistended. EXTREMITIES: Examination of bilateral upper extremities reveals no significant pain with shoulder, elbow or wrist motion. He has intact sensation in all fingers. He has good capillary refill in all fingers. Cant Hooker strength is +5 bilaterally. Radial pulses are palpable. Examination of left leg reveals no pain with hip, knee or ankle motion. Skin is intact. Dorsalis pedis pulse is palpable. Sensation is intact. Examination of right leg reveals no tenderness around his hip or ankle. He has mild swelling around the knee. There is a palpable defect along the patellar tendon. There is a joint effusion present. Skin is intact. Calf and thigh compartments are soft. X-RAYS X-rays of right knee were reviewed. X-rays reveal that the patella is relatively high. There appears to be a small avulsion fracture off the inferior pole of the patella. IMPRESSION 1. Patellar tendon disruption. 2. Alcohol abuse. 3. Tobacco abuse. PLAN The treatment options were discussed with the patient. At this point I would recommend open repair of right patellar tendon. The risks of surgery include bleeding, infection, injuries to arteries, nerves and blood vessels, nonunion, malunion, painful hardware, knee stiffness, knee loss of motion, as well as medical complications including blood clot, stroke, heart attack and . All questions were answered. I will plan on surgery today. A mid-level provider in my office, nurse practitioner or PA, may see this patient on a follow-up basis and continue to implement the objective of this plan including: Starting or adjusting medications, injections of muscle, tendon, bursa or joints, cast application, orthotic or brace application, physical therapy, further radiographic studies including x-ray, MRI, CT, ultrasounds or bone scan, vascular studies, neurologic studies, or other specialist consultations, and proceeding with surgical management as appropriate. MD SHIVANI Nash/MARY /9:01 AM /9:06 AM
[2017-02-02] MEDS ORDERED: ACETAMINOPHEN 1000 MG/100 ML 100 ML IV ONE (10:22)
[2017-02-02] MEDS ORDERED: ceFAZolin 2 GM PREMIX 50 ML ONE (10:33)
[2017-02-02] MEDS ORDERED: SODIUM CHLOR 0.9% 250 ML INJ 250 ML ONE (10:33)
[2017-02-02] MEDS ORDERED: GENTAMICIN SULFATE 80 MG/2 ML VIAL ONE (10:33)
[2017-02-02] MEDS ORDERED: VANCOMYCIN HCL 1000 MG VIAL ONE (10:33)
--- NOTE | 2017-02-02 10:45 | EKG ---
Date Performed: 02/02/2017 Time Performed: 01:19:16 PTAGE: 52 years EKG: Sinus rhythm Leftward axis Extensive ST-T changes may be due to myocardial ischemia Abnormal ECG NO PREVIOUS TRACING DOCTOR: Juan Washburn Interpretating Date/Time 02/02/2017 10:39:40
[2017-02-02] MEDS ORDERED: WHEEMIS3 (10:47)
[2017-02-02] MEDS ORDERED: WALKER/ADULT/FO1 MIS (10:47)
[2017-02-02] MEDS ORDERED: HYDR-3580 PO (10:47)
[2017-02-02] MEDS ORDERED: XARE10TA PO (10:47)
[2017-02-02] MEDS ORDERED: CALCTAB19 PO (10:47)
[2017-02-02] MEDS ORDERED: BUPIVACAINE HCL PF 0.5% 30 ML VIAL ONE (10:48)
[2017-02-02] MEDS ORDERED: DEXAMETHASONE SOD PHOS PF 10 MG/ML VIAL ONE (10:48)
--- NOTE | 2017-02-02 10:54 | PD.OP ---
cc: Tucker Duran MD Operative Report Date of Surgery: Feb 02, 2017 Preoperative Diagnosis: Right patellar tendon disruption Postoperative Diagnosis: Procedure: Primary repair of right patellar tendon Anesthesia: Gen. Surgeon: Tucker Duran Charging Machine Operator(s): KYLEIGH Leach PA-C The surgical procedure was assisted by my physician child welfare assistant. My P.A. presence was necessary throughout this case for the manipulation and positioning of the surgical extremity. My P.A. was assisting me throughout the duration of this procedure. The skill set of a physician child welfare assistant was medically necessary to complete this procedure. During the surgical case the ophthalmology surgical technician was working at the back table and the physician child welfare assistant was directly assisting me. Operation and Findings: This patient had a fall resulting in disruption of right patellar tendon. Informed consent was confirmed preoperatively and informed consent was obtained. I had a detailed discussion with the patient regarding the risks and benefits of surgery. Patient was brought to the operating room and placed on the OR table. IV sedation and GETA were administered by anesthesiologist and IV antibiotics were given prior to incision. A timeout procedure was performed. The operative leg was prepped with alcohol followed by Hibiclens and draped in the usual sterile fashion. The procedure began with a 4-inch incision over the anterior knee. Subcutaneous tissue was dissected with Bovie. At this point the patellar tendon was visualized. At this point attention was turned towards primary repair of the patellar tendon 3 drill tunnels were created from inferior to superior across the body of the patella. Two #5 FiberWire sutures were now passed through the patellar tendon in a [place] style fashion. The sutures were now passed through the drill holes of the patella. The patella was now reduced to the patellar tendon. Sutures were tensioned and tied. At this point additional fixation was placed. A drill tunnel was created from medial to lateral along the patella and tibial tubercle. A cable was passed through the patella and through the tibial tubercle bone tunnel. Cable was tightened appropriately to give additional stability and protect the patellar tendon repair. Fluoroscopy confirmed that the patella was in appropriate position. The remainder of the retinaculum was now closed with #1 Vicryls. Subcutaneous tissue was closed with 3-0 Vicryl and skin was closed with flaquita. Sterile dressings were applied. The patient placed into a knee immobilizer and was transferred to recovery in stable condition. Needle and sponge counts were correct. Tucker Duran MD Feb 02, 2017 10:54
[2017-02-02] MEDS ORDERED: MORPHINE SULFATE 4 MG/ML INJ IV PUSH PRN (11:00)
[2017-02-02] MEDS ORDERED: Post-op Orders (for Pharmacy) MISC XX ONE (11:00)
[2017-02-02] MEDS ORDERED: SODIUM CHLORIDE 0.9% FLUSH 5 ML FLUSH IVF PRN (11:00)
[2017-02-02] MEDS ORDERED: diphenhydrAMINE HCL 25 MG CAP PO PRN (11:00)
[2017-02-02] MEDS ORDERED: DEXAMETHASONE SOD PHOS 4 MG/ML VIAL IV ONE (12:00)
[2017-02-02] MEDS ORDERED: ONDANSETRON HCL 4 MG/2 ML VIAL IV PUSH ONE (12:00)
[2017-02-02] MEDS ORDERED: MIDAZOLAM HCL 2 MG/2 ML VIAL IV ONE (12:00)
[2017-02-02] MEDS ORDERED: PHENYLEPH/NS 1000 MCG/10 ML SYR IV ONE (12:00)
[2017-02-02] MEDS ORDERED: ePHEDrine/NS 25 MG/5 ML SYR IV ONE (12:00)
[2017-02-02] MEDS ORDERED: PROPOFOL 200 MG/20 ML AMP IV ONE (12:00)
[2017-02-02] MEDS ORDERED: LIDOCAINE HCL 1% PF 5 ML AMPULE OTHER ONE (12:00)
[2017-02-02] MEDS ORDERED: SODIUM CHLOR 0.9% 250 ML INJ 250 ML IV ONE (12:00)
[2017-02-02] MEDS ORDERED: DO NOT ADM ANY ANTICOAGULANT DRUGS PRN (12:13)
[2017-02-02] MEDS ORDERED: *morphine SULFATE 8 MG/ML PERIprocedure ONLY ONE (12:23)
[2017-02-02] MEDS: LACTATED RINGER'S 1000 ML INJ 1,000 ML IV SCH (13:00)
[2017-02-02 13:20] VITALS: BP 165/96; PULSE 70; RESP 18; TEMP 95.9; O2SAT 100
--- NOTE | 2017-02-02 14:13 | RADRPT ---
EXAM DATE/TIME: 02/02/2017 11:42 [facility] COMPARISON: KNEE RIGHT COMPLETE (4VWS), February 01, 2017, 21:39. INDICATIONS : ORIF right patella fracture. MEDICAL HISTORY : Unobtainable. SURGICAL HISTORY : Unobtaiable. ENCOUNTER: Subsequent ACUITY: 1 day PAIN SCORE: Non-responsive. LOCATION: Right knee FINDINGS: Two fluoroscopic images demonstrating interval repositioning and cerclage wire fixation of the patell a. Hardware appears well-positioned and intact. Redemonstration of inferior patellar avulsion fractur e. Remaining osseous structures are grossly intact. CONCLUSION: 1. Interval right patellar fracture ORIF in near-anatomic alignment, as above. Eric Fenton MD on February 02, 2017 at 14:08 Board Certified Radiologist. This report was verified electronically.
--- NOTE | 2017-02-02 15:33 | HHI.PR ---
Subjective Remarks Resting comfortably in bed No event overnight Denied chest and or short of breath No fever or chills Objective Vitals Vital Signs Date Time Temp Pulse Resp B/P (MAP) Pulse Ox O2 Delivery O2 Flow Rate FiO2 02/02/17 13:20 95.9 70 18 165/96 (119) 100 02/02/17 13:10 65 20 148/79 (102) 100 Nasal Cannula 2 02/02/17 13:00 62 20 142/72 (95) 100 Nasal Cannula 2 02/02/17 12:45 62 20 171/97 (121) 100 Nasal Cannula 2 02/02/17 12:30 68 20 172/100 (124) 100 Nasal Cannula 2 02/02/17 12:15 97.9 72 20 162/108 (126) 100 Nasal Cannula 2 02/02/17 08:03 97.2 65 18 141/94 (110) 98 02/02/17 03:50 96.1 76 18 133/86 (102) 99 02/02/17 03:05 Room Air 02/01/17 23:45 97.5 76 17 152/88 (109) 98 02/01/17 23:29 20 02/01/17 22:46 74 20 156/93 (114) 99 Room Air 02/01/17 21:26 97.2 80 17 169/98 (121) 98 I/O 02/01/17 02/01/17 02/01/17 02/02/17 02/02/17 02/02/17 07:00 15:00 23:00 07:00 15:00 23:00 Intake Total 120 ml 1000 ml Output Total 450 ml 50 ml Balance -330 ml 950 ml Intake Oral 120 ml Other 1000 ml Output Urine Total 450 ml Estimated Blood Loss 50 ml # Voids 0 # Bowel Movements 1 Result Diagram: 02/02/1715 02/02/1715 Objective Remarks GENERAL: This is a well-nourished, well-developed patient, in no apparent distress. SKIN: No rashes, warm and dry HEAD: Atraumatic. Normocephalic. EYES: Pupils equal round and reactive. Extraocular motions intact. No scleral icterus. ENT: Nose without bleeding, or drainage, Airway patent. NECK: Trachea midline. Supple CARDIOVASCULAR: Regular rate and rhythm without murmurs, gallops, or rubs. RESPIRATORY: Fair air entry bilaterally. No wheezes, rales, or rhonchi. GASTROINTESTINAL: Abdomen soft, non-tender, nondistended. Positive bowel sounds MUSCULOSKELETAL: Extremities without clubbing, cyanosis, or edema. Pedal pulses appreciated NEUROLOGICAL: Awake and alert. Moves all extremity. Normal speech.no focal neurological deficit A/P Problem List: (1) Fall ICD Code: W19.XXXA - Unspecified fall, initial encounter (2) Patella fracture ICD Code: S82.009A - Unspecified fracture of unspecified patella, initial encounter for closed fracture Status: Acute (3) Renal insufficiency ICD Code: N28.9 - Disorder of kidney and ureter, unspecified (4) HTN (hypertension) ICD Code: I10 - Essential (primary) hypertension Assessment and Plan 1. Fall: S/p mechanical trip and fall while walking out of liquor store, no LOC or head trauma, no other injuries reported. 2. Right Patellar Fx: secondary to above, Knee X-ray w/ avulsion fracture inferior patella with superior migration of patella and extensive prepatellar soft tissue swelling, images reviewed by me. Dr. Sargent consulted by ER physician, status post open repair, IVF, analgesics/antiemetics as needed. 3. DANIELA: Resolved, Creatinine 1.31> 0.8, previously 1.09 on 06/01/16. IVF for hydration, repeat labs in a.m. 4. HTN: BP 160s on arrival, likely compounded by pain complaints. Monitor BP. 5. Alcohol Abuse: Drinks daily. CIWA, Seizure Precautions, MVT/Thiamine/ Folate replacement. 6. Tobacco Abuse: NicoDerm prn if needed. 7. DVT Prophylaxis: Anticoagulation post op 02/02: DANIELA improved creatinine 0.8, continue iv fluids, continue pain management , status post open repair of the fracture Problem Qualifiers (1) Patella fracture: Qualified Codes: S82.091A - Other fracture of right patella, initial encounter for closed fracture Marvin Concepcion MD Feb 02, 2017 15:33
[2017-02-02 16:00] VITALS: BP 107/50; PULSE 80; RESP 18; TEMP 97.4; O2SAT 99
[2017-02-02] MEDS: ceFAZolin 2 GM PREMIX 50 ML IV SCH (16:12)
[2017-02-02 18:03] VITALS: O2SAT 99
[2017-02-02 20:00] VITALS: BP 162/96; PULSE 93; RESP 18; TEMP 98.9; O2SAT 98
[2017-02-02] MEDS: SODIUM CHLORIDE 0.9% FLUSH 5 ML FLUSH IVF SCH (21:00)
[2017-02-03 00:56] VITALS: BP 159/89; PULSE 81; RESP 17; TEMP 98; O2SAT 99
[2017-02-03] MEDS: ceFAZolin 2 GM PREMIX 50 ML IV SCH ×2 (01:38→08:18)
[2017-02-03] MEDS: LACTATED RINGER'S 1000 ML INJ 1,000 ML IV SCH (01:39)
[2017-02-03 04:45] VITALS: BP 145/79; PULSE 79; RESP 17; TEMP 97.2; O2SAT 97
[2017-02-03] MEDS: SODIUM CHLOR 0.9% 1000 ML INJ 1,000 ML IV SCH (05:10)
[2017-02-03 08:00] VITALS: BP 142/91; PULSE 76; RESP 18; TEMP 98; O2SAT 97
[2017-02-03] MEDS: MULTIVITAMINS/MINERALS THERAPEUTIC TAB PO SCH (08:18)
[2017-02-03] MEDS: THIAMINE HCL 100 MG TAB PO SCH (08:18)
[2017-02-03] MEDS: FOLIC ACID 1 MG TAB PO SCH (08:18)
[2017-02-03] MEDS: SODIUM CHLORIDE 0.9% FLUSH 5 ML FLUSH IVF SCH (08:22)
[2017-02-03] MEDS: DOCUSATE SODIUM 50 MG/SENNA 8.6 MG TAB PO SCH (08:22)
[2017-02-03 09:14] LABS: HEMATOCRIT 41.3 % (39.0-51.0); REVIEW FLAG FINAL
[2017-02-03] MEDS ORDERED: ENOXAPARIN SODIUM 30 MG/0.3 ML SYRINGE SQ SCH (11:00)
[2017-02-03] MEDS ORDERED: GNP100TA3 PO (11:45)
[2017-02-03] MEDS ORDERED: LISI-519 PO (11:45)
[2017-02-03] MEDS ORDERED: FOLI1TAB6 PO (11:45)
[2017-02-03 12:00] VITALS: BP 150/97; PULSE 75; RESP 18; TEMP 96.8; O2SAT 100
[2017-02-03] MEDS ORDERED: LISINOPRIL 5 MG TAB PO SCH (13:00)
--- NOTE | 2017-02-03 14:01 | HHI.PR ---
Subjective Remarks Doing well stable for discharge Objective Vitals Vital Signs Date Time Temp Pulse Resp B/P (MAP) Pulse Ox O2 Delivery O2 Flow Rate FiO2 02/03/17 12:00 96.8 75 18 150/97 (114) 100 02/03/17 08:00 98.0 76 18 142/91 (108) 97 02/03/17 04:45 97.2 79 17 145/79 (101) 97 02/03/17 00:56 98.0 81 17 159/89 (112) 99 02/02/17 20:00 98.9 93 18 162/96 (118) 98 02/02/17 18:03 99 21 02/02/17 16:00 97.4 80 18 107/50 (69) 99 I/O 02/02/17 02/02/17 02/02/17 02/03/17 02/03/17 02/03/17 07:00 15:00 23:00 07:00 15:00 23:00 Intake Total 120 ml 1000 ml 720 ml 360 ml Output Total 450 ml 50 ml 750 ml 1100 ml Balance -330 ml 950 ml -30 ml -740 ml Intake Oral 120 ml 720 ml 360 ml Other 1000 ml Output Urine Total 450 ml 750 ml 1100 ml Estimated Blood Loss 50 ml # Voids 0 2 # Bowel Movements 1 0 0 Result Diagram: 02/03/17 0807 02/02/17 0515 Objective Remarks GENERAL: This is a well-nourished, well-developed patient, in no apparent distress. SKIN: No rashes, warm and dry HEAD: Atraumatic. Normocephalic. EYES: Pupils equal round and reactive. Extraocular motions intact. No scleral icterus. ENT: Nose without bleeding, or drainage, Airway patent. NECK: Trachea midline. Supple CARDIOVASCULAR: Regular rate and rhythm without murmurs, gallops, or rubs. RESPIRATORY: Fair air entry bilaterally. No wheezes, rales, or rhonchi. GASTROINTESTINAL: Abdomen soft, non-tender, nondistended. Positive bowel sounds MUSCULOSKELETAL: Extremities without clubbing, cyanosis, or edema. Pedal pulses appreciated NEUROLOGICAL: Awake and alert. Moves all extremity. Normal speech.no focal neurological deficit A/P Problem List: (1) Fall ICD Code: W19.XXXA - Unspecified fall, initial encounter (2) Patella fracture ICD Code: S82.009A - Unspecified fracture of unspecified patella, initial encounter for closed fracture Status: Acute (3) Renal insufficiency ICD Code: N28.9 - Disorder of kidney and ureter, unspecified (4) HTN (hypertension) ICD Code: I10 - Essential (primary) hypertension Assessment and Plan 1. Fall: S/p mechanical trip and fall while walking out of liquor store, no LOC or head trauma, no other injuries reported. 2. Right Patellar Fx: secondary to above, Knee X-ray w/ avulsion fracture inferior patella with superior migration of patella and extensive prepatellar soft tissue swelling, images reviewed by me. Dr. Sargent consulted by ER physician, status post open repair, IVF, analgesics/antiemetics as needed. 3. DANIELA: Resolved, Creatinine 1.31> 0.8, previously 1.09 on 06/01/16. IVF for hydration, repeat labs in a.m. 4. HTN: BP 160s on arrival, likely compounded by pain complaints. Monitor BP. 5. Alcohol Abuse: Drinks daily. CIWA, Seizure Precautions, MVT/Thiamine/ Folate replacement. 6. Tobacco Abuse: NicoDerm prn if needed. 7. DVT Prophylaxis: Anticoagulation post op 02/02: DANIELA improved creatinine 0.8, continue iv fluids, continue pain management , status post open repair of the fracture 02/03: Doing well stable for discharge follow up as an outpatient him I will increase lisinopril for better blood pressure optimization Discharge patient to home Condition on discharge: Improved Of the heart Diet as tolerated Ad Becki activity Rx written: See med rec Follow-up with primary care physician Problem Qualifiers (1) Patella fracture: Qualified Codes: S82.091A - Other fracture of right patella, initial encounter for closed fracture Marvin Concepcion MD Feb 03, 2017 14:01
[2017-02-03] MEDS ORDERED: ACETAMINOPHEN/HYDROcodone 325 MG/7.5 MG TAB PO PRN (14:30)
== END 2017-02-03 15:07 | disposition home or self-care (01) | DRG 501 ==
LOC: NEPD 21:17 → NEDA 23:04 → N06B 23:52
PROVIDERS: ADMIT Hospitalist; ATTEND Hospitalist
PROC: 0LMQ0ZZ Reattachment of Right Knee Tendon, Open Approach (ICD-10-PCS; principal; 2017-02-02 10:48)
DX: S82.001A Unspecified fracture of right patella, initial encounter for closed fracture (principal); N17.9 Acute kidney failure, unspecified; S76.191A Other specified injury of right quadriceps muscle, fascia and tendon, initial encounter; W01.0XXA Fall on same level from slipping, tripping and stumbling without subsequent striking against object, initial encounter; Y92.512 Supermarket, store or market as the place of occurrence of the external cause; I10 Essential (primary) hypertension; F10.10 Alcohol abuse, uncomplicated; F17.210 Nicotine dependence, cigarettes, uncomplicated
CPT/HCPCS: 73560; 73564; 76000; 80048; 80053; 85007; 85014; 85018; 85025; 85027; 85610; 85730; 93005; C1713; J0131; J0690; J1100; J1580; J1650; J2250; J2270; J2370; J2405; J3010; J3370; J7030; J7050; J7120; L1830

== ENCOUNTER 2017-06-05 23:38 | Emergency (ER) | payer OTHER ==
[~2017-06-05] VITALS: Ht 188 cm; Wt 84.0 kg
[~2017-06-05 23:38] MED LIST changes: +CALCTAB19 PO; -FOLI1TAB4 PO; +FOLI1TAB6 PO; -HYDR-3288 PO; +HYDR-3580 PO; +LISI-519 PO; +THIA100 PO; -VITA100T2 PO; +WHEEMIS3; +XARE10TA PO
[2017-06-05 23:53] VITALS: BP 163/94; PULSE 99; RESP 22; TEMP 98.2; O2SAT 96
--- NOTE | 2017-06-06 00:11 | PD ---
HPI Chief Complaint: Psychiatric Symptoms Time Seen by Provider: 00:00 Travel History International Travel<30 days: No Contact w/Intl Traveler<30days: No Traveled to known affect area: No History of Present Illness HPI 52-year-old black male presents emergency department under [place] act by PD. The patient had contacted police identifying the fact that he is a alcoholic and substance abuser and would like to get into detox. Family members had informed PD that the patient had made a statement of a suicidal nature. The patient here denies this. He does not want to hurt himself or hurt anyone. He would like to get into detox because he is life is out of control. He suffers from chronic right knee and right ankle pain. He admits to drinking a large amount of alcohol and doing power cocaine. He denies any toxic ingestions. No medical complaints otherwise. [facility] Past Medical History Narrative Medical Depression, polysubstance abuse, alcoholism, right patella fracture, right ankle fracture Arthritis: No Asthma: No Autoimmune Disease: No Blood Disorders: No Depression: Yes Heart Rhythm Problems: No Cardiovascular Problems: No High Cholesterol: No Chest Pain: No Congestive Heart Failure: No COPD: No Cerebrovascular Accident: No Diabetes: No Diminished Hearing: No GERD: No Glaucoma: No Headaches: No Hepatitis: No Hiatal Hernia: No Immune Disorder: No Kidney Stones: No Musculoskeletal: No Neurologic: No Reproductive: No Myocardial Infarction: No Renal Failure: No Seizures: No Sickle Cell Disease: No Sleep Apnea: No Thyroid Disease: No Ulcer: No Tetanus Vaccination: < 5 Years Influenza Vaccination: No Past Surgical History Abdominal Surgery: No Cardiac Surgery: No Ear Surgery: No Endocrine Surgery: No Eye Surgery: Yes (LEFT EYE X 3 YRS AGO) Genitourinary Surgery: No Gynecologic Surgery: No Oral Surgery: No Thoracic Surgery: No Other Surgery: Yes (wrist.surgury) Social History Alcohol Use: Yes (5-6 BEERS THREE TIMES A WEEK) Tobacco Use: Yes (1/2 PPD) Substance Use: Yes (COCAINE) Allergies-Medications (Allergen,Severity, Reaction): Coded Allergies: No Known Allergies (Verified , 02/01/17) Reported Meds & Prescriptions Reported Meds & Active Scripts Active Lisinopril 5 Mg Tab 5 Mg PO DAILY Folic Acid 1 Mg Tablet 1 Mg PO DAILY Gnp Vitamin B-1 (Thiamine HCl) 100 Mg Tab 100 Mg PO DAILY Calcium 600+D 200 (Calcium Carbonate-Vitamin D) 600-200 Mg-Unit Tab 1 Tab PO BID Xarelto (Rivaroxaban) 10 Mg Tab 10 Mg PO DAILY Hydrocodone-Acetaminophen 7.5-325 mg Tab 1 Tab PO Q4H PRN Wheelchair Elevated Leg (Device) 1 Mis Mis Ea .ROUTE DIRECTED Walker/Adult/Folding (Device) 1 Mis Mis Ea .ROUTE DIRECTED Walker/Adult/Folding (Device) 1 Mis Mis 1 Ea .ROUTE DIRECTED Review of Systems General / Constitutional: No: Fever Eyes: No: Visual changes HENT: No: Headaches Cardiovascular: No: Chest Pain or Discomfort Respiratory: No: Shortness of Breath Gastrointestinal: No: Abdominal Pain Genitourinary: No: Dysuria Musculoskeletal: Positive: Arthralgias, Limited ROM, Pain Skin: No Rash Neurologic: No: Weakness Psychiatric: Positive: Depression, Mood Disorder, Substance Abuse, No: Anxiety , Suicidal Ideations, Disorder of Thought, Homicidal Ideation Endocrine: No: Polydipsia Hematologic/Lymphatic: No: Easy Bruising Physical Exam Narrative GENERAL: Well-nourished, well-developed patient. SKIN: Warm and dry. HEAD: Normocephalic and atraumatic. EYES: No scleral icterus. No injection or drainage. ENT: No nasal drainage noted. Mucous membranes pink. Airway patent. NECK: Supple, trachea midline. Moves head freely without obvious discomfort. CARDIOVASCULAR: Regular rate and rhythm without murmurs, gallops, or rubs. RESPIRATORY: Breath sounds equal bilaterally. No accessory muscle use. GASTROINTESTINAL: Abdomen soft, non-tender, nondistended. EXTREMITIES: No cyanosis. Patient has edema on the right knee and right ankle. He complains of diffuse pain. Limited range of motion due to pain. This is not acute. The skin is intact. He has good distal pulses. Left lower extremity where as well as the upper extremities are unremarkable. BACK: Nontender without obvious deformity. No CVA tenderness. NEURO: Patient is alert and oriented. no sensorimotor deficits. Nonfocal. Normal speech. PSYCH: No delusions. No auditory or visual hallucinations. Data Data Last Documented VS Vital Signs Date Time Temp Pulse Resp B/P (MAP) Pulse Ox O2 Delivery O2 Flow Rate FiO2 06/05/17 23:53 98.2 99 22 163/94 (117) 96 Room Air Orders Orders Complete Blood Count With Diff (06/06/17 00:07) Comprehensive Metabolic Panel (06/06/17 00:07) Thyroid Stimulating Hormone (06/06/17 00:07) Psych Screen (06/06/17 00:07) Drug Screen, Random Urine (06/06/17 00:07) Alcohol (Ethanol) (06/06/17 00:07) MDM Medical Decision Making Medical Screen Exam Complete: Yes Emergency Medical Condition: Yes Medical Record Reviewed: Yes Differential Diagnosis MDM: High Differential diagnoses: Schizophrenia, schizoaffective disorder, bipolar, anxiety, depression, adjustment reaction, mood disorder NOS, ODD, depressive disorder NOS, dementia, dementia with agitation, psychosis NOS, substance induced mood disorder, DMDD, Asperger syndrome, infection,electrolyte abnormality, malingering. Narrative Course Mental health screening discussed with the patient. Psychiatric screen ordered. Patient has been medically cleared. This is medical clearance for psychiatric admission, polysubstance abuse Diagnosis Primary Impression: Medical clearance for psychiatric admission Additional Impression: Polysubstance abuse Condition: Stable Rudy Gudino Jun 06, 2017 00:11
[2017-06-06 00:39] LABS: AUTOMATED NEUTROPHIL # 5.4 TH/MM3 (1.8-7.7); BASOPHIL # 0.1 TH/MM3 (0-0.2); BASOPHIL % 1.2 % (0.0-2.0); EOSINOPHIL # 0.1 TH/MM3 (0-0.4); EOSINOPHIL % 1.5 % (0.0-4.0); HEMATOCRIT 40.4 % (39.0-51.0); HEMOGLOBIN 13.7 GM/DL (13.0-17.0); LYMPH % 20.5 % (9.0-44.0); LYMPHOCYTE # 1.6 TH/MM3 (1.0-4.8); MEAN CELL VOLUME 82.6 FL (80.0-100.0); MEAN CORPUSCULAR HEMOGLOBIN 28.1 PG (27.0-34.0); MEAN PLATELET VOLUME 6.7 FL (7.0-11.0); MONO % 7.8 % (0.0-8.0); MONOCYTE # 0.6 TH/MM3 (0-0.9); PLATELET COUNT 326 TH/MM3 (150-450); RED BLOOD COUNT 4.89 MIL/MM3 (4.50-5.90); RED CELL DISTRIBUTION WIDTH 14.7 % (11.6-17.2); WHITE BLOOD COUNT 7.8 TH/MM3 (4.0-11.0)
[2017-06-06 00:57] LABS: ALBUMIN 3.8 GM/DL (3.4-5.0); ALT (GPT) 22 U/L (12-78); AST (GOT) 20 U/L (15-37); BICARBONATE 26.5 MEQ/L (21.0-32.0); BLOOD UREA NITROGEN 15 MG/DL (7-18); CALCIUM 8.8 MG/DL (8.5-10.1); CHLORIDE 102 MEQ/L (98-107); CREATININE 1.04 MG/DL (0.60-1.30); GLOMERULAR FILTRATION RATE 92 ML/MIN (>89); GLUCOSE,RANDOM 86 MG/DL (74-106); SODIUM (NA) 138 MEQ/L (136-145)
[2017-06-06 01:06] LABS: ALKALINE PHOSPHATASE 70 U/L (45-117); TOTAL BILIRUBIN ADULT 0.3 MG/DL (0.2-1.0); TOTAL PROTEIN 7.8 GM/DL (6.4-8.2)
[2017-06-06 02:02] VITALS: BP 154/87; PULSE 90; RESP 18; TEMP 99.2; O2SAT 98
[2017-06-06 05:44] VITALS: BP 156/75; PULSE 78; RESP 17; TEMP 98.2; O2SAT 99
[2017-06-06 11:24] VITALS: BP 125/69; PULSE 75; RESP 16; TEMP 98.7; O2SAT 97
--- NOTE | 2017-06-06 11:37 | MB ---
cc: MITCHELL RUSSELL DATE OF CONSULTATION 06/06/2017 REASON FOR CONSULTATION Beatty Act. Physician requesting consultation: Emergency Department. HISTORY OF PRESENT ILLNESS Mr. Duenas is a 52-year-old -[place] male with no reported past psychiatric history who presents under a Beatty Act by law enforcement alleging that the patient advised that he was having a narcotic problem and told his mother and brother that he wanted to kill himself. Reviewing our electronic medical record, I do note that the patient has been previously seen in the emergency department for complaints of depression and suicidal ideation. Patient is seen and examined with nurse. Chart reviewed. Case discussed with nursing staff. On my examination today, the patient presents as somewhat manipulative, and it is my suspicion that he wishes to remain in the ED for care home. He says that he does not "feel safe going back out there." There is apparently some difficulty at his house and he does not feel safe returning there. He says that he has "a lot going on." He is a fairly vague historian overall. He continues to endorse vague suicidality with no specific plan or intent. He also endorses auditory hallucinations, likewise diffuse. He also endorses some vague paranoia. No other mood or psychotic symptoms. The remainder of psychiatric ROS is negative. The patient complains of chronic knee pain but otherwise no physical complaints. PAST PSYCHIATRIC HISTORY The patient denies a history of psychiatric diagnosis. He denies a history of inpatient or outpatient psychiatric treatment. He denies a history of suicide attempts. He denies a history of violent behavior. FAMILY HISTORY The patient denies family history of serious mental illness or suicide. CHEMICAL DEPENDENCY HISTORY The patient reports that he uses powdered cocaine as well as crack cocaine. He drinks four 32 ounce beers daily. His last use was yesterday evening. His longest sober time was 5 years following a rehabilitation program. No other substance use reported. SOCIAL HISTORY The patient reports that he previously had stable housing but does not feel safe returning there. He is single with no children. He has a 9th grade education. He is not presently working. Denies any access to guns or firearms. Denies any legal history. PAST MEDICAL HISTORY The patient reports chronic knee problems but otherwise no past medical history. MEDICATIONS The patient reports he takes no medications. ALLERGIES No known allergies. REVIEW OF SYSTEMS Except as noted in the HPI this is negative. PHYSICAL EXAMINATION Temperature 98.2, pulse 78, respirations 17, blood pressure 156/75, pulse oximetry 99% on room air. Physical examination was completed by the ED provider. On my examination today, the patient appears to be in no acute physical distress. No motor abnormalities noted. No signs of intoxication or withdrawal noted at this time. LABORATORY Laboratory is reviewed: CBC is unremarkable. CMP is unremarkable. TSH is within normal limits. Toxicology is positive only for cocaine and alcohol level is 4. No imaging performed. MENTAL STATUS EXAMINATION The patient is in hospital attire. He is somewhat disheveled but maintaining basic hygiene. He is awake, alert and oriented x4. No motor abnormalities noted. Speech is within normal limits for rate, tone and volume. Language and fund of knowledge average. Focus and concentration intact. Memory grossly intact on clinical exam. Mood is dysphoric and affect is restricted. Thought process linear. No loosening of associations. No delusional material elicited. Endorses vague auditory hallucinations as noted above. No reported command auditory hallucinations. Endorses vague suicidal ideation without specific plan or intent. No reported urge to hurt himself on the inpatient unit. No homicidal ideation. Insight and judgment are fair. ASSESSMENT 1. Adjustment disorder with depressed mood, F43.21. 2. Polysubstance abuse, F19.10. PLAN This is a 52-year-old -[place] male with psychiatric history as detailed above who is presently brought to the psychiatric emergency room under a Beatty Act by law enforcement. On my examination today, the patient endorses vague suicidality and auditory hallucinations. It is my suspicion that these are malingered or perhaps substance-induced. Nonetheless, given the gravity of reported symptoms I would recommend retaining the patient under the Beatty Act. I would recommend initiating a CIWA scale with Ativan for management of any withdrawal. I have instructed the nurse in the [facility] to ensure that the patient is on the [facility] wait list. Thank you very much for this consultation. Mitchell ALVARENGA /8:01 AM /11:09 AM LARA
[2017-06-06 17:15] VITALS: BP 121/76; PULSE 74; RESP 18
[2017-06-06 22:53] VITALS: BP 122/84; PULSE 83; RESP 18; TEMP 98.5; O2SAT 99
[2017-06-07 03:11] VITALS: BP 130/78; PULSE 76; RESP 18; TEMP 98.2; O2SAT 100
[2017-06-07 06:56] VITALS: BP 137/88; PULSE 76; RESP 17; TEMP 98.1; O2SAT 98
[2017-06-07 11:35] VITALS: BP 123/73; PULSE 84; RESP 16; O2SAT 97
[2017-06-07 15:06] VITALS: BP 148/72; PULSE 74; RESP 16; O2SAT 98
--- NOTE | 2017-06-07 15:37 | PD ---
Physical Exam Time Seen by Provider: 15:37 Narrative Patient is being transferred to [facility] for continued care and evaluation. Data Data Last Documented VS Vital Signs Date Time Temp Pulse Resp B/P (MAP) Pulse Ox O2 Delivery O2 Flow Rate FiO2 06/07/17 15:06 74 16 148/72 (97) 98 Room Air 06/07/17 06:56 98.1 Orders Orders Complete Blood Count With Diff (06/06/17 00:07) Comprehensive Metabolic Panel (06/06/17 00:07) Thyroid Stimulating Hormone (06/06/17 00:07) Psych Screen (06/06/17 00:07) Drug Screen, Random Urine (06/06/17 00:07) Alcohol (Ethanol) (06/06/17 00:07) Diet Regular Basic (06/06/17 Breakfast) Diet Regular Basic (06/06/17 Lunch) Diet Regular Basic (06/06/17 Dinner) Diet Regular Basic (06/07/17 Breakfast) Diet Regular Basic (06/07/17 Lunch) Diet Regular Basic (06/07/17 Dinner) Labs Laboratory Tests Test 06/06/17 00:28 06/06/17 03:17 White Blood Count 7.8 TH/MM3 Red Blood Count 4.89 MIL/MM3 Hemoglobin 13.7 GM/DL Hematocrit 40.4 % Mean Corpuscular Volume 82.6 FL Mean Corpuscular Hemoglobin 28.1 PG Mean Corpuscular Hemoglobin Concent 34.0 % Red Cell Distribution Width 14.7 % Platelet Count 326 TH/MM3 Mean Platelet Volume 6.7 FL Neutrophils (%) (Auto) 69.0 % Lymphocytes (%) (Auto) 20.5 % Monocytes (%) (Auto) 7.8 % Eosinophils (%) (Auto) 1.5 % Basophils (%) (Auto) 1.2 % Neutrophils # (Auto) 5.4 TH/MM3 Lymphocytes # (Auto) 1.6 TH/MM3 Monocytes # (Auto) 0.6 TH/MM3 Eosinophils # (Auto) 0.1 TH/MM3 Basophils # (Auto) 0.1 TH/MM3 CBC Comment DIFF FINAL Differential Comment Blood Urea Nitrogen 15 MG/DL Creatinine 1.04 MG/DL Random Glucose 86 MG/DL Total Protein 7.8 GM/DL Albumin 3.8 GM/DL Calcium Level 8.8 MG/DL Alkaline Phosphatase 70 U/L Aspartate Amino Transf (AST/SGOT) 20 U/L Alanine Aminotransferase (ALT/SGPT) 22 U/L Total Bilirubin 0.3 MG/DL Sodium Level 138 MEQ/L Potassium Level 3.6 MEQ/L Chloride Level 102 MEQ/L Carbon Dioxide Level 26.5 MEQ/L Anion Gap 10 MEQ/L Estimat Glomerular Filtration Rate 92 ML/MIN Thyroid Stimulating Hormone 3rd Gen 1.030 uIU/ML Ethyl Alcohol Level 4 MG/DL Urine Opiates Screen NEG Urine Barbiturates Screen NEG Urine Amphetamines Screen NEG Urine Benzodiazepines Screen NEG Urine Cocaine Screen POS Urine Cannabinoids Screen NEG MDM Supervised Visit with KAT: No Narrative Course Patient is being transferred to [facility] for continued care and evaluation. Diagnosis Primary Impression: Medical clearance for psychiatric admission Additional Impression: Polysubstance abuse Disposition: 65 DISC TO PSYCH CARE FACILITY Condition: Stable Marie Lopez Jun 07, 2017 15:37
== END 2017-06-07 16:13 ==
LOC: NEPD 23:38 → NEPJ 06-07 16:13
DX: F43.21 Adjustment disorder with depressed mood (principal); F19.10 Other psychoactive substance abuse, uncomplicated; R44.0 Auditory hallucinations; M25.561 Pain in right knee; M25.571 Pain in right ankle and joints of right foot; G89.29 Other chronic pain; F17.200 Nicotine dependence, unspecified, uncomplicated; Z79.899 Other long term (current) drug therapy
CPT/HCPCS: 80053; 80307; 84443; 85025; 99285